=== PATIENT | male | born 1995 | race Caucasian/White ===

== ENCOUNTER 2018-06-05 14:31 | Outpatient (CLI) | payer OTHER | END 2018-06-05 14:32 | disposition home or self-care (01) | LOC: CTENTCT 14:31 | PROVIDERS: ATTEND Otolaryngology Plastic Surgery within the Head & Neck | DX: J32.9 Chronic sinusitis, unspecified (principal) | CPT/HCPCS: 70486 ==

== ENCOUNTER 2018-07-11 08:45 | Day surgery (SDC) | payer OTHER ==
[2018-07-10 12:26] VITALS: BMI 24.4
[2018-07-11] MEDS ORDERED: Fentanyl 100 MCG/2 ML VIAL ONE (11:08)
[2018-07-11] MEDS ORDERED: Lidocaine 1% w/Epinephrine 1:100K 20 ML VIAL ONE (11:08)
[2018-07-11] MEDS ORDERED: Oxymetazoline HCl 0.05% ( 15 ML ) ONE ×2 (11:08→11:12)
[2018-07-11] MEDS ORDERED: Bacitracin Zinc Ointment 30 gm TUBE ONE (11:08)
[2018-07-11] MEDS ORDERED: Midazolam HCl 2 mg/2 ml Vial ONE (11:08)
--- NOTE | 2018-07-13 08:20 | OP ---
DATE OF PROCEDURE: 07/11/2018 PREOPERATIVE DIAGNOSES: 1. Chronic rhinosinusitis. 2. Nasal septal deviation. 3. Bilateral inferior turbinate hypertrophy. 4. Nasal obstruction. POSTOPERATIVE DIAGNOSES: 1. Chronic rhinosinusitis. 2. Nasal septal deviation. 3. Bilateral inferior turbinate hypertrophy. 4. Nasal obstruction. PROCEDURES PERFORMED: 1. Bilateral endoscopic sinus surgery, total ethmoidectomies. 2. Bilateral endoscopic sinus surgery, maxillary antrostomies. 3. Bilateral endoscopic sinus surgery, frontal sinusotomies. 4. Bilateral endoscopic sinus surgery, sphenoidotomies. 5. Nasal septoplasty. 6. Bilateral inferior turbinate submucosal resection. ESTIMATED BLOOD LOSS: 50 mL. COMPLICATIONS: None. ANESTHESIA: GETA. DESCRIPTION OF PROCEDURE: Patient was taken to the operating room and placed supine on the table. General endotracheal anesthesia was obtained by the anesthesia staff. Tube was secured in the left lower lip. Patient was then placed in the beach chair position, and Afrin pledgets were placed in the nasal cavity. Injections of 1% lidocaine with 1:100,000 epinephrine were made into the nasal septum as well as the inferior turbinates. Patient was then prepped and draped in standard surgical fashion for nasal surgery. Following this, the Afrin pledgets were removed. A Jose incision was made on the left nasal septum. Submucoperichondrial dissection was performed. The deviated portions of the septum included portions of the cartilage and the bony septum. These isolated areas were removed using 3 cutting rongeurs. There was noted to be a large dorsal and caudal strut, left intact for support of the nose. The mucoperichondrial flaps were then reapproximated using a 4-0 gut stitch. Any straight pieces of cartilage were crushed prior to this and placed between the mucoperichondrial flaps. Following this, the inferior turbinates were then punctured with a submucosal coblation wand, and submucosal coblations were performed of multiple areas of the inferior portion of the anterior inferior turbinate. Please note that the submucosal microdebrider was used to submucosally resect the anterior and inferior portions of the inferior turbinates bilaterally. Following this, the inferior turbinates were laterally fractured with a Chandler elevator. Following this, the 0-degree endoscope was advanced in the middle meatus. The middle turbinates were gently medialized using a Chandler elevator. The uncinate process was then exposed and identified bilaterally. The ball ended probe was then used to anteriorly fracture the ball of the uncinate process bilaterally. The uncinate process was then removed using the 0-degree microdebrider and the up-biting Blakesley forceps bilaterally. Following this, the natural maxillary sinus ostia was identified bilaterally and was widened using the curved microdebrider and straight Blakesley forceps bilaterally. Following this, the ethmoidal bulla was identified and was then punctured on its medial and inferior aspect and was removed using the microdebrider. Following this, the grand lamella was identified and was then punctured bilaterally into the posterior ethmoidal cells. Working from posterior to anterior, the ethmoidal cells were opened bilaterally using the straight microdebrider, curved microdebrider, and up-biting Blakesley forceps. Following this, the sphenoid sinuses were approached by staying medial to the middle turbinate bilaterally. This superior turbinate where it attached to the posterior nasal wall was identified. Staying just medial and inferior to this location, sphenoidotomies were created using a small Elizondo tip suction. Following this, the sphenoidotomies were widened bilaterally using the microdebrider and medial and inferior direction. Following this, a 45-degree endoscope and a 40-degree microdebrider blade were used to further open the anterior ethmoidal cells and frontal recess cells bilaterally. Following this, the frontal sinus ostia was identified and was widened using the curved microdebrider bilaterally. Following this, the nasal cavity was irrigated. Mirapex was placed. Ernandez splints were placed and secured. The patient tolerated the procedure well. Job ID: [id number]
== END 2018-07-11 14:18 | disposition home or self-care (01) ==
LOC: SDC 08:45
PROVIDERS: ATTEND Otolaryngology Plastic Surgery within the Head & Neck
PROC: 099R8ZZ Drainage of Left Maxillary Sinus, Via Natural or Artificial Opening Endoscopic (ICD-10-PCS; principal; 2018-07-11)
PROC: 09BM8ZZ Excision of Nasal Septum, Via Natural or Artificial Opening Endoscopic (ICD-10-PCS; principal; 2018-07-11)
PROC: 099Q8ZZ Drainage of Right Maxillary Sinus, Via Natural or Artificial Opening Endoscopic (ICD-10-PCS; principal; 2018-07-11)
PROC: 09TL8ZZ Resection of Nasal Turbinate, Via Natural or Artificial Opening Endoscopic (ICD-10-PCS; principal; 2018-07-11)
DX: J34.2 Deviated nasal septum (principal); J34.3 Hypertrophy of nasal turbinates; J34.89 Other specified disorders of nose and nasal sinuses; J32.9 Chronic sinusitis, unspecified; J30.9 Allergic rhinitis, unspecified
CPT/HCPCS: J2001; J2250; J3010

== ENCOUNTER 2022-08-29 18:00 | Outpatient (CLI) | payer BC | END 2022-08-29 18:01 | disposition home or self-care (01) | LOC: SLEEPLAB 18:00 | PROVIDERS: ATTEND Student in an Organized Health Care Education/Training Program | DX: G47.10 Hypersomnia, unspecified (principal); G47.33 Obstructive sleep apnea (adult) (pediatric); G47.9 Sleep disorder, unspecified; G47.61 Periodic limb movement disorder; R53.83 Other fatigue; R40.0 Somnolence; F32.A Depression, unspecified; G47.00 Insomnia, unspecified | CPT/HCPCS: 95800 ==

== ENCOUNTER 2022-10-07 19:30 | Outpatient (CLI) | payer BC | END 2022-10-07 19:31 | disposition home or self-care (01) | LOC: SLEEPLAB 19:30 | PROVIDERS: ATTEND Student in an Organized Health Care Education/Training Program | DX: G47.33 Obstructive sleep apnea (adult) (pediatric) (principal); G47.61 Periodic limb movement disorder; R06.83 Snoring; G47.00 Insomnia, unspecified; F32.A Depression, unspecified; R53.83 Other fatigue | CPT/HCPCS: 95810 ==